=== PATIENT | female | born 1960 | race Two or more races ===

== ENCOUNTER 2023-03-14 18:51 | Emergency (ER) | payer MEDICAID, OTHER ==
[~2023-03-14] VITALS: Ht 162.6 cm; Wt 127.2 kg
[2023-03-14 20:25] LABS: Basophils # (auto) 0.1 10 ^3/uL (0-0.2); Basophils % (auto) 0.7 % (0.0-2.0); Eosinophils # (auto) 0.5 10 ^3/uL (0-0.8); Eosinophils % (auto) 3.8 % (0.0-7.0); Hematocrit 40.3 % (36.0-46.0); Lymphocytes # (auto) 2.9 10 ^3/uL (0.4-5.4); Lymphocytes % (auto) 23.3 % (10.0-50.0); Mean Corpuscular Hemoglobin 30.1 pg (28.0-32.0); Mean Corpuscular Hgb Conc. 32.4 g/dL (32.0-36.0); Mean Corpuscular Volume 92.9 fL (80.0-100.0); Monocytes # (auto) 0.8 10 ^3/uL (0-1.3); Monocytes % (auto) 6.7 % (0.0-12.0); Neutrophils # (auto) 8.1 10 ^3/uL (1.6-8.6); Neutrophils % (auto) 65.5 % (37.0-80.0); Nucleated Red Blood Cells % 0.1 %; Red Blood Cells 4.33 10^6/uL (4.0-5.20); White Blood Cell 12.3 10^3/uL (4.4-10.8)
[2023-03-14 20:35] LABS: Chloride 107 mmol/L (98-107); Potassium 3.9 mmol/L (3.5-5.1); Sodium 142 mmol/L (136-145)
[2023-03-14 20:36] LABS: Anion Gap 6 (5-15); Carbon Dioxide 29 mmol/L (20-30)
[2023-03-14 20:41] LABS: BUN/Creatinine Ratio 11.5 (10.0-20.0); Blood Urea Nitrogen 12 mg/dL (9-23); Glucose 107 mg/dL (74-106)
[2023-03-14] MEDS ORDERED: CEPH500C PO (21:47)
[2023-03-14 22:55] VITALS: BP 125/62; PULSE 67; RESP 18; TEMP 98.4; O2SAT 96
== END 2023-03-14 22:57 | disposition home or self-care (01) ==
LOC: EDBD 18:51 → ER 18:51
DX: L03.116 Cellulitis of left lower limb (principal); I87.8 Other specified disorders of veins; I89.0 Lymphedema, not elsewhere classified
CPT/HCPCS: 36415; 80048; 85025